=== PATIENT | male | born 1940 | race Two or more races ===

== ENCOUNTER → 2021-12-17 | Outpatient (CLI) | payer MEDICARE ==
[2015-01-07 15:00] VITALS: BP 123/74
[~2021-12-17] MED LIST: CIPR500T2 PO; METR-34 PO
--- NOTE | 2021-12-18 11:33 | KCIC ---
EXAM: XR RIBS AND CHEST 4+VIEWS, XR SHOULDER_LEFT 2+ VIEWS 12/17/2021 2:50 PM CLINICAL INDICATION: Acute pain. Fell on back. Pain between shoulders, especially on left COMPARISON: None TECHNIQUE: PA view of the chest. AP and oblique views of the right and left ribs. AP internal and ex ternal rotation, and scapular Y views of the left shoulder. FINDINGS: Ribs: No displaced rib fracture. The heart is normal in size. Lungs are well-expanded and clear. No p leural effusion or pneumothorax. Left shoulder: There is cortical regularity along the inferior left glenoid neck on AP views but not appreciated on scapular Y view. This could be due to fracture or could be related to degenerative arslan nges. No other evidence of fracture of the left shoulder. No dislocation. 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 Bony changes at the greater tuberosity sugge sting chronic rotator cuff pathology. The subacromial space is preserved. IMPRESSION: 1. No displaced rib fracture. 2. Irregularity along the inferior left glenoid neck could be a minimally displaced fracture or due t o degenerative changes. No other acute abnormality in the left shoulder. Electronically signed by: Merry Sandra MD (12/18/2021 11:31 AM) [id number]
== END ==
LOC: KCIC 14:43
PROVIDERS: ATTEND Family Medicine
DX: M19.012 Primary osteoarthritis, left shoulder (principal); M89.8X2 Other specified disorders of bone, upper arm; R07.81 Pleurodynia
CPT/HCPCS: 71111; 73030